=== PATIENT | female | born 1990 | race Caucasian/White ===

== ENCOUNTER 2017-10-03 11:47 | Emergency (ER) | payer BC, OTHER ==
[2017-10-03 12:46] LABS: #Basophils 0.1 thou/uL (0.0-0.2); #Eosinphils 0.2 thou/uL (0.0-0.7); #Lymphocytes 1.5 thou/uL (1.20-3.40); #Monocytes 0.4 thou/uL (0.11-0.59); #Neutrophils 4.1 thou/uL (1.40-6.50); %Basophils 0.9 % (0.0-1.0); %Eosinophils 2.4 % (0.0-10.0); %Lymphocytes 23.7 % (21.0-51.0); %Monocytes 6.6 % (0.0-10.0); %Neutrophils 66.4 % (42.0-75.0); Hemoglobin 9.5 g/dL (12.0-16.0); Hypochromia SLIGHT = 6-15 cells (100X) (0-5/hpf); MDiff Complete? YES; Mean Corpuscular HGB CONC 30.7 g/dL (32.0-36.0); Mean Corpuscular Volume 68.4 fL (78.0-98.0); Mean Platelet Volume 8.8 fL (7.4-10.4); Microcytosis MODERATE=15-30 cells (100X) (0-5/hpf); PLT Morphology Comment Appears Adequate; Platelet Count 279 thou/uL (130-400); RBC Distribution Width 16.8 % (11.5-14.5); White Blood Cell (WBC) Count 6.2 thou/uL (4.8-10.8)
[2017-10-03 13:01] LABS: BHCG - Serum Negative (NEGATIVE); Pregs Control Background? CLEAR/WHITE (CLR/WHITE); Pregs Control Bar Appear? YES (CONTROL BAR)
[2017-10-06 01:33] LABS: Chlamydia by PCR Not Detected (NotDetected); GC by PCR Not Detected (NotDetected)
== END 2017-10-03 13:55 | disposition home or self-care (01) ==
LOC: ERS 11:47
DX: N93.9 Abnormal uterine and vaginal bleeding, unspecified (principal)
CPT/HCPCS: 36415; 84703; 85025; 87480; 87491; 87510; 87591; 87660; 99284

== ENCOUNTER 2017-10-14 16:34 | Emergency (ER) | payer BC, OTHER | END 2017-10-14 16:58 | disposition home or self-care (01) | LOC: ERS 16:34 | DX: K03.81 Cracked tooth (principal); K02.9 Dental caries, unspecified | CPT/HCPCS: 99282 ==

== ENCOUNTER 2018-02-08 13:25 | Emergency (ER) | payer BC, OTHER, SELFPAY ==
[2018-02-08] MEDS ORDERED: Lidocaine 1% w/Epinephrine 1:100K 20 ML VIAL ONE (14:31)
[2018-02-08] MEDS ORDERED: Bupivacaine 0.5% 10 ML VIAL ONE (14:31)
[2018-02-08 14:55] LABS: Pregnancy Test - Urine (BHCG) Negative (Negative); Pregu Control Background? CLEAR/WHITE (CLR/WHITE); Pregu Control Bar Appear? YES (CONTROL BAR); Specific Gravity 1.027 (1.002-1.036)
== END 2018-02-08 15:49 | disposition home or self-care (01) ==
LOC: ERS 13:25
DX: K01.1 Impacted teeth (principal); Z79.899 Other long term (current) drug therapy
CPT/HCPCS: 64400; 81025; J2001; J3490

== ENCOUNTER 2018-02-22 16:53 | Emergency (ER) | payer SELFPAY ==
[2018-02-22] MEDS ORDERED: HYDROcodone/Acetaminophen 10/325 mg Tablet ONE (17:22)
== END 2018-02-22 17:47 | disposition home or self-care (01) ==
LOC: ERS 16:53
DX: K08.89 Other specified disorders of teeth and supporting structures (principal); Z79.1 Long term (current) use of non-steroidal anti-inflammatories (NSAID); Z79.891 Long term (current) use of opiate analgesic
CPT/HCPCS: 99282

== ENCOUNTER 2019-09-12 09:17 | Emergency (ER) | payer OTHER, SELFPAY | END 2019-09-12 10:20 | disposition home or self-care (01) | LOC: ERS 09:17 | DX: R11.2 Nausea with vomiting, unspecified (principal); Z20.828 Contact with and (suspected) exposure to other viral communicable diseases | CPT/HCPCS: 99283 ==

== ENCOUNTER 2019-10-28 23:28 | Emergency (ER) | payer MEDICAID, OTHER, SELFPAY ==
[2019-10-29] MEDS ORDERED: Meclizine HCl 25 MG TAB ONE (00:16)
[2019-10-29] MEDS ORDERED: Ondansetron ODT 4 MG TAB ONE (00:16)
== END 2019-10-29 01:42 | disposition home or self-care (01) ==
LOC: ERS 23:28
DX: R42 Dizziness and giddiness (principal)
CPT/HCPCS: 99283; Q0162

== ENCOUNTER 2019-12-01 19:26 | Emergency (ER) | payer BC ==
[~2019-12-01 19:26] MED LIST: Iopamidol-370 76% 500 ML 1 ML ONE
[2019-12-01 20:12] LABS: #Basophils 0.1 thou/uL (0.0-0.2); #Eosinphils 0.2 thou/uL (0.0-0.7); #Lymphocytes 1.8 thou/uL (1.20-3.40); #Monocytes 0.8 thou/uL (0.11-0.59); #Neutrophils 7.5 thou/uL (1.40-6.50); %Basophils 0.8 % (0.0-1.0); %Eosinophils 1.7 % (0.0-10.0); %Lymphocytes 17.6 % (21.0-51.0); %Monocytes 7.4 % (0.0-10.0); %Neutrophils 72.5 % (42.0-75.0); ALT (SGPT) 14 U/L (8-55); AST (SGOT) 13 U/L (5-34); Albumin 4.1 g/dL (3.5-5.0); Alkaline Phosphatase 64 U/L (40-110); Anion Gap 14 mmol/L (10-20); BUN (Urea Nitrogen) 17 mg/dL (7.0-18.7); Bilirubin, Total 0.2 mg/dL (0.2-1.2); Calc. Creatinine Clearance 0 mL/min (70-130); Calcium 9.1 mg/dL (7.8-10.44); Carbon Dioxide 26 mmol/L (22-29); Chloride 101 mmol/L (98-107); Estimated GFR-MDRD 62; Globulin 3.4 g/dL (2.4-3.5); Glucose 98 mg/dL (70-105); Hemoglobin 9.5 g/dL (12.0-16.0); Lipase 50 U/L (8-78); Mean Corpuscular HGB CONC 30.2 g/dL (32.0-36.0); Mean Corpuscular Hemoglobin 20.5 pg (27.0-31.0); Mean Corpuscular Volume 67.9 fL (78.0-98.0); Mean Platelet Volume 8.9 fL (7.4-10.4); Platelet Count 368 thou/uL (130-400); Potassium 4.1 mmol/L (3.5-5.1); Protein, Total 7.5 g/dL (6.0-8.3); RBC Distribution Width 17.7 % (11.5-14.5); Red Blood Cell (RBC) Count 4.63 mill/uL (4.20-5.40); Sodium 137 mmol/L (136-145); White Blood Cell (WBC) Count 10.4 thou/uL (4.8-10.8)
[2019-12-01 20:22] LABS: BHCG - Serum Negative (NEGATIVE); Pregs Control Background? CLEAR/WHITE (CLR/WHITE); Pregs Control Bar Appear? YES (CONTROL BAR)
[2019-12-01 21:12] LABS: Bacteria/HPF None Seen HPF (None Seen); Bilirubin Negative (Negative); Blood, Urine 1+ (Negative); Clarity Clear (Clear); Glucose, Urine (Dipstick) Normal (Negative); Ketone, Urine Negative (Negative); Leukocyte Negative Leu/uL (Negative); Nitrite Negative (Negative); Protein, Urine (Dipstick) Negative (Neg-Trace); Specific Gravity, Urine 1.027 (1.002-1.036); Squamous Epithelial 0-3 HPF (0-3); Urobilinogen Normal mg/dL (Less than 2); WBC/HPF 0-3 HPF (0-3); pH, Urine 6.5 (5.0-9.0)
[2019-12-01] MEDS ORDERED: Ketorolac Tromethamine 30 MG/ML VIAL ONE (21:37)
--- NOTE | 2019-12-02 06:40 | CT ---
CT ABDOMEN AND PELVIS PERFORMED WITH CONTRAST ENHANCEMENT: HISTORY: Pelvic pain. FINDINGS: The lung bases are clear. A small hiatal hernia is noted. The liver, spleen, pancreas, and gallbladder regions appear unremarkable. Right and left adrenal glands and right and left kidneys are normal in size. No significant periaort ic or mesenteric adenopathy. The appendix is retrocecal and normal in appearance. CT OF PELVIS PERFORMED WITH CONTRAST: There is no evidence of adenopathy, mass, or free fluid. There are clips which appear to represent t ubal ligation clips. One is in the region of the left fallopian tube and the other one is in the cul -de-sac region, not definitely associated with the right ovary. IMPRESSION: No acute findings of the abdomen or pelvis. POS: OFF
== END 2019-12-01 22:29 | disposition home or self-care (01) ==
LOC: ERS 19:26
DX: R10.30 Lower abdominal pain, unspecified (principal); R10.814 Left lower quadrant abdominal tenderness; D64.9 Anemia, unspecified; F41.9 Anxiety disorder, unspecified
CPT/HCPCS: 36415; 74177; 80053; 81003; 81015; 83690; 84703; 85025; 96372; J0500; J1885; Q9967

== ENCOUNTER 2020-08-29 13:54 | Emergency (ER) | payer SELFPAY ==
[2020-08-29 14:46] LABS: #Eosinphils 0.1 thou/uL (0.0-0.7); #Lymphocytes 1.3 thou/uL (1.20-3.40); #Monocytes 0.5 thou/uL (0.11-0.59); %Basophils 0.4 % (0.0-1.0); %Eosinophils 2.3 % (0.0-10.0); %Lymphocytes 25.9 % (21.0-51.0); %Monocytes 9.6 % (0.0-10.0); %Neutrophils 61.8 % (42.0-75.0); Hemoglobin 9.6 g/dL (12.0-16.0); Mean Corpuscular HGB CONC 30.5 g/dL (32.0-36.0); Mean Corpuscular Hemoglobin 20.8 pg (27.0-31.0); Mean Corpuscular Volume 68.1 fL (78.0-98.0); Mean Platelet Volume 8.7 fL (7.4-10.4); Platelet Count 299 thou/uL (130-400); RBC Distribution Width 16.2 % (11.5-14.5); Red Blood Cell (RBC) Count 4.63 mill/uL (4.20-5.40); White Blood Cell (WBC) Count 4.9 thou/uL (4.8-10.8)
[2020-08-29] MEDS ORDERED: Ondansetron PF 4 MG/2 ML Vial ONE (15:02)
[2020-08-29 15:04] LABS: ALT (SGPT) 17 U/L (8-55); AST (SGOT) 16 U/L (5-34); Albumin 4.2 g/dL (3.5-5.0); Alkaline Phosphatase 76 U/L (40-110); Anion Gap 14 mmol/L (10-20); BUN (Urea Nitrogen) 13 mg/dL (7.0-18.7); Bilirubin, Total 0.2 mg/dL (0.2-1.2); Calc. Creatinine Clearance 0 mL/min (70-130); Calcium 9.3 mg/dL (7.8-10.44); Carbon Dioxide 23 mmol/L (22-29); Chloride 105 mmol/L (98-107); Globulin 3.4 g/dL (2.4-3.5); Glucose 94 mg/dL (70-105); Lipase 55 U/L (8-78); Potassium 4.2 mmol/L (3.5-5.1); Protein, Total 7.6 g/dL (6.0-8.3); Sodium 138 mmol/L (136-145)
[2020-08-29 15:05] LABS: Anisocytosis SLIGHT = 6-15 cells (100X) (0-5/hpf); Hypochromia SLIGHT = 6-15 cells (100X) (0-5/hpf); MDiff Complete? YES; Microcytosis SLIGHT = 6-15 cells (100X) (0-5/hpf); Platelet Morphology Comment Appears Adequate; Polychromasia SLIGHT = 2-3 cells (100X) (0-2/hpf)
[2020-08-29] MEDS ORDERED: Ondansetron ODT 4 MG TAB ONE (15:05)
[2020-08-29 15:17] LABS: Bacteria/HPF None Seen HPF (None Seen); Bilirubin Negative (Negative); Blood, Urine Trace (Negative); Clarity Clear (Clear); Glucose, Urine (Dipstick) Normal (Negative); Ketone, Urine Negative (Negative); Leukocyte Negative Leu/uL (Negative); Nitrite Negative (Negative); Pregnancy Test - Urine (BHCG) Negative (Negative); Pregu Control Background? CLEAR/WHITE (CLR/WHITE); Pregu Control Bar Appear? YES (CONTROL BAR); Protein, Urine (Dipstick) Negative (Neg-Trace); Specific Gravity 1.028 (1.002-1.036); Specific Gravity, Urine 1.028 (1.002-1.036); Urobilinogen Normal mg/dL (Less than 2); WBC/HPF 0-3 HPF (0-3)
== END 2020-08-29 16:00 | disposition home or self-care (01) ==
LOC: ERS 13:54
DX: R10.84 Generalized abdominal pain (principal); R11.0 Nausea
CPT/HCPCS: 36415; 80053; 81003; 81015; 81025; 83690; 85025; 96372; 99284; J0500; J2405; Q0162

== ENCOUNTER 2020-12-18 18:00 | Emergency (ER) | payer SELFPAY | END 2020-12-18 19:15 | disposition home or self-care (01) | LOC: ERS 18:00 | DX: J02.9 Acute pharyngitis, unspecified (principal); D50.9 Iron deficiency anemia, unspecified | CPT/HCPCS: 99281 ==

== ENCOUNTER 2021-07-26 11:56 | Emergency (ER) | payer SELFPAY ==
[2021-07-26 12:51] LABS: Bilirubin Negative (Negative); Blood, Urine Negative (Negative); Clarity Clear (Clear); Glucose, Urine (Dipstick) Normal (Negative); Ketone, Urine Negative (Negative); Leukocyte Negative Leu/uL (Negative); Nitrite Negative (Negative); Protein, Urine (Dipstick) Negative (Neg-Trace); Specific Gravity, Urine 1.021 (1.002-1.036); Urobilinogen Normal mg/dL (Less than 2)
[2021-07-26 12:53] LABS: Pregnancy Test - Urine (BHCG) Negative (Negative); Pregu Control Background? CLEAR/WHITE (CLR/WHITE); Pregu Control Bar Appear? YES (CONTROL BAR); Specific Gravity 1.021 (1.002-1.036)
[2021-07-26] MEDS ORDERED: Ketorolac Tromethamine 30 MG/ML VIAL ONE (13:19)
== END 2021-07-26 13:53 | disposition home or self-care (01) ==
LOC: ERS 11:56
DX: M54.50 Low back pain, unspecified (principal); F17.210 Nicotine dependence, cigarettes, uncomplicated
CPT/HCPCS: 74176; 81003; 81025; 96372; J1885

== ENCOUNTER 2022-03-31 08:08 | Emergency (ER) | payer SELFPAY ==
[2022-03-31 08:50] LABS: Bacteria/HPF 1+ HPF (None Seen); Bilirubin Negative (Negative); Blood, Urine Negative (Negative); Clarity Clear (Clear); Glucose, Urine (Dipstick) Normal (Negative); Ketone, Urine Negative (Negative); Leukocyte 75 Leu/uL (Negative); Nitrite Negative (Negative); Protein, Urine (Dipstick) 10 mg/dL (Neg-Trace); RBC/HPF 0-3 HPF (0-3); Specific Gravity, Urine 1.028 (1.002-1.036); Urobilinogen Normal mg/dL (Less than 2); WBC/HPF 0-3 HPF (0-3); pH, Urine 6.5 (5.0-9.0)
[2022-03-31] MEDS ORDERED: Ondansetron ODT 4 MG TAB ONE (09:15)
[2022-03-31 09:16] LABS: #Eosinphils 0.1 thou/uL (0.0-0.7); #Lymphocytes 1.6 thou/uL (1.20-3.40); #Monocytes 0.5 thou/uL (0.11-0.59); #Neutrophils 4.9 thou/uL (1.40-6.50); %Basophils 0.6 % (0.0-1.0); %Eosinophils 1.8 % (0.0-10.0); %Lymphocytes 22.3 % (21.0-51.0); %Monocytes 6.5 % (0.0-10.0); %Neutrophils 68.8 % (42.0-75.0); Hemoglobin 12.1 g/dL (12.0-16.0); Mean Corpuscular Hemoglobin 25.6 pg (27.0-31.0); Mean Corpuscular Volume 77.5 fl (78.0-98.0); Mean Platelet Volume 8.3 fL (7.4-10.4); Platelet Count 235 10x3/uL (130-400); RBC Distribution Width 16.6 % (11.5-14.5); Red Blood Cell (RBC) Count 4.74 mill/uL (4.20-5.40); White Blood Cell (WBC) Count 7.1 10x3/uL (4.8-10.8)
[2022-03-31 09:19] LABS: Pregnancy Test - Urine (BHCG) Negative (Negative)
[2022-03-31 09:20] LABS: Pregu Control Background? CLEAR/WHITE (CLR/WHITE); Pregu Control Bar Appear? YES (CONTROL BAR); Specific Gravity 1.028 (1.002-1.036)
[2022-03-31 09:33] LABS: ALT (SGPT) Less than 7 U/L (8-55); AST (SGOT) 10 U/L (5-34); Albumin 4.3 g/dL (3.5-5.0); Alkaline Phosphatase 67 U/L (40-110); Anion Gap 12 mmol/L (10-20); BUN (Urea Nitrogen) 11 mg/dL (7.0-18.7); Bilirubin, Total 0.4 mg/dL (0.2-1.2); Calc. Creatinine Clearance 0 mL/min (70-130); Calcium 9.3 mg/dL (7.8-10.44); Carbon Dioxide 23 mmol/L (22-29); Chloride 106 mmol/L (98-107); Estimated GFR 105; Globulin 3.2 g/dL (2.4-3.5); Glucose 94 mg/dL (70-105); Lipase 37 U/L (8-78); Potassium 3.9 mmol/L (3.5-5.1); Protein, Total 7.5 g/dL (6.0-8.3); Sodium 137 mmol/L (136-145)
== END 2022-03-31 09:47 | disposition home or self-care (01) ==
LOC: ERS 08:08
DX: R11.10 Vomiting, unspecified (principal); F17.290 Nicotine dependence, other tobacco product, uncomplicated
CPT/HCPCS: 36415; 80053; 81003; 81015; 81025; 83690; 85025; 99283; Q0162

== ENCOUNTER 2022-04-09 18:20 | Emergency (ER) | payer SELFPAY ==
[2022-04-09 19:06] LABS: #Eosinphils 0.2 thou/uL (0.0-0.7); #Lymphocytes 2.2 thou/uL (1.20-3.40); #Monocytes 0.5 thou/uL (0.11-0.59); #Neutrophils 6.5 thou/uL (1.40-6.50); %Basophils 0.5 % (0.0-1.0); %Eosinophils 1.9 % (0.0-10.0); %Lymphocytes 23.4 % (21.0-51.0); %Monocytes 5.3 % (0.0-10.0); Hemoglobin 10.3 g/dL (12.0-16.0); Mean Corpuscular HGB CONC 32.9 g/dL (32.0-36.0); Mean Corpuscular Hemoglobin 25.6 pg (27.0-31.0); Mean Platelet Volume 7.8 fL (7.4-10.4); Platelet Count 244 10x3/uL (130-400); RBC Distribution Width 16.7 % (11.5-14.5); Red Blood Cell (RBC) Count 4.01 mill/uL (4.20-5.40); White Blood Cell (WBC) Count 9.5 10x3/uL (4.8-10.8)
[2022-04-09 19:18] LABS: BHCG - Serum Negative (NEGATIVE); Pregs Control Background? CLEAR/WHITE (CLR/WHITE); Pregs Control Bar Appear? YES (CONTROL BAR)
[2022-04-09 19:28] LABS: ALT (SGPT) Less than 7 U/L (8-55); AST (SGOT) 10 U/L (5-34); Alkaline Phosphatase 61 U/L (40-110); Anion Gap 12 mmol/L (10-20); BUN (Urea Nitrogen) 11 mg/dL (7.0-18.7); Bilirubin, Total 0.2 mg/dL (0.2-1.2); Calc. Creatinine Clearance 0 mL/min (70-130); Carbon Dioxide 23 mmol/L (22-29); Chloride 105 mmol/L (98-107); Estimated GFR 115; Globulin 2.9 g/dL (2.4-3.5); Glucose 85 mg/dL (70-105); Lipase 43 U/L (8-78); Potassium 3.4 mmol/L (3.5-5.1); Protein, Total 6.9 g/dL (6.0-8.3); Sodium 137 mmol/L (136-145)
[2022-04-09] MEDS ORDERED: Ondansetron PF 4 MG/2 ML Vial ONE (19:34)
[2022-04-09] MEDS ORDERED: Morphine 4 MG/ML VIAL ONE (19:34)
[2022-04-09] MEDS ORDERED: Ketorolac Tromethamine 30 MG/ML VIAL ONE (20:53)
[2022-04-09 21:14] LABS: Bacteria/HPF None Seen HPF (None Seen); Bilirubin Negative (Negative); Blood, Urine 2+ (Negative); Clarity Clear (Clear); Glucose, Urine (Dipstick) Normal (Negative); Ketone, Urine 10 mg/dL (Negative); Leukocyte Negative Leu/uL (Negative); Nitrite Negative (Negative); Protein, Urine (Dipstick) 20 mg/dL (Neg-Trace); Specific Gravity, Urine 1.032 (1.002-1.036); WBC/HPF 0-3 HPF (0-3)
[2022-04-09 21:33] LABS: Pregnancy Test - Urine (BHCG) Negative (Negative); Pregu Control Background? CLEAR/WHITE (CLR/WHITE); Pregu Control Bar Appear? YES (CONTROL BAR); Specific Gravity 1.032 (1.002-1.036)
== END 2022-04-09 22:09 | disposition home or self-care (01) ==
LOC: ERS 18:20
DX: K42.9 Umbilical hernia without obstruction or gangrene (principal); F17.290 Nicotine dependence, other tobacco product, uncomplicated
CPT/HCPCS: 36415; 74177; 80053; 81003; 81015; 81025; 83690; 84703; 85025; 93005; 96374; 96375; J1885; J2270; J2405; Q9967

== ENCOUNTER 2022-09-09 15:50 | Emergency (ER) | payer SELFPAY | END 2022-09-09 16:18 | disposition left against medical advice (07) | LOC: ERS 15:50 | DX: Z53.21 Procedure and treatment not carried out due to patient leaving prior to being seen by health care provider (principal) ==

== ENCOUNTER 2022-09-09 19:05 | Emergency (ER) | payer OTHER ==
[2022-09-09] MEDS ORDERED: Ketorolac Tromethamine 30 MG/ML VIAL ONE (20:52)
== END 2022-09-09 21:47 | disposition home or self-care (01) ==
LOC: ERS 19:05
DX: S09.90XA Unspecified injury of head, initial encounter (principal); M54.9 Dorsalgia, unspecified; E78.00 Pure hypercholesterolemia, unspecified; V89.2XXA Person injured in unspecified motor-vehicle accident, traffic, initial encounter
CPT/HCPCS: 70450; 71045; 72125; 96372; J1885

== ENCOUNTER 2023-11-19 19:20 | Emergency (ER) | payer OTHER, SELFPAY | END 2023-11-19 20:05 | LOC: ERS 19:20 → EEVIPCON 19:20 → ERS 20:05 | DX: M25.531 Pain in right wrist (principal); M25.532 Pain in left wrist; D64.9 Anemia, unspecified; E78.00 Pure hypercholesterolemia, unspecified; I10 Essential (primary) hypertension; F17.290 Nicotine dependence, other tobacco product, uncomplicated; Z55.6 Problems related to health literacy | CPT/HCPCS: 99283 ==

== ENCOUNTER 2024-01-16 09:35 | Emergency (ER) | payer OTHER ==
[2024-01-16] MEDS ORDERED: Ketorolac Tromethamine 30 MG (1 mL) VIAL ONE (10:53)
[2024-01-16] MEDS ORDERED: predniSONE 20 MG TAB ONE (10:54)
[2024-01-16] MEDS ORDERED: Famotidine 20 MG TAB ONE (10:54)
[2024-01-16] MEDS ORDERED: Loratadine 10 MG TAB ONE (10:56)
== END 2024-01-16 12:00 | disposition home or self-care (01) ==
LOC: ERS 09:35
DX: S70.362A Insect bite (nonvenomous), left thigh, initial encounter (principal); T78.40XA Allergy, unspecified, initial encounter; W57.XXXA Bitten or stung by nonvenomous insect and other nonvenomous arthropods, initial encounter; F17.290 Nicotine dependence, other tobacco product, uncomplicated
CPT/HCPCS: 96372; 99282; J1885; J7512